=== PATIENT | female | born 1995 | race African-American/Black ===

== ENCOUNTER 2016-05-21 10:34 | Emergency (ER) | payer SELFPAY ==
[~2016-05-21 10:34] MED LIST: PROM12.553 RC
[2016-05-21 10:36] VITALS: BP 126/86
--- NOTE | 2016-05-21 11:07 | PHYS DOC ---
Past History Past Medical History: No Pertinent History Past Surgical History: Other Smoking: Non-smoker Alcohol Use: None Drug Use: None Adult General Chief Complaint Chief Complaint: foot pain HPI HPI 20 years old female patient G1 at 30 weeks of gestation complaining of pain in the medial side of left ankle and she thinks maybe she had injury with a torn to her ankle. Patient denies problem related to her and fever and chills. Review of Systems Review of Systems Constitutional: Denies fever or chills [] Eyes: Denies change in visual acuity, redness, or eye pain [] HENT: Denies nasal congestion or sore throat [] Respiratory: Denies cough or shortness of breath [] Cardiovascular: No additional information not addressed in HPI [] GI: Denies abdominal pain, nausea, vomiting, bloody stools or diarrhea [] : Denies dysuria or hematuria [] Musculoskeletal: Denies back pain or joint pain [] Integument: Denies rash or skin lesions [] Neurologic: Denies headache, focal weakness or sensory changes [] Endocrine: Denies polyuria or polydipsia [] Allergies Allergies Allergies Coded Allergies Type Severity Reaction Last Updated Verified No Known Drug Allergies 09/14/14 No Physical Exam Physical Exam Constitutional: Well developed, well nourished, no acute distress, non-toxic appearance.anxious [] HENT: Normocephalic, atraumatic, bilateral external ears normal, oropharynx moist, no oral exudates, nose normal. [] Eyes: PERRLA, EOMI, conjunctiva normal, no discharge. [] Neck: Normal range of motion, no tenderness, supple, no stridor. [] Cardiovascular:Heart rate regular rhythm, no murmur [] Lungs & Thorax: Bilateral breath sounds clear to auscultation [] Abdomen: Bowel sounds normal, soft, no tenderness, no masses, no pulsatile masses. gravid abdomen[] Skin: Warm, dry, no erythema, no rash. [] Back: No tenderness, no CVA tenderness. [] Extremities: No tenderness, no cyanosis, no clubbing, ROM intact, no edema. left ankle with very small area of erythema[] Neurologic: Alert and oriented X 3, normal motor function, normal sensory function, no focal deficits noted. [] Psychologic: Affect normal, judgement normal, mood normal. [] Current Patient Data Vital Signs Vital Signs Date Time Temp Pulse Resp B/P Pulse Ox O2 Delivery O2 Flow Rate FiO2 05/21/16 10:36 98.5 105 18 97 Room Air EKG EKG [] Radiology/Procedures Radiology/Procedures [] Dragon Disclaimer Dragon Disclaimer This chart was dictated in whole or in part using Voice Recognition software in a busy, high-work load, and often noisy Emergency Department environment. It may contain unintended and wholly unrecognized errors or omissions. Departure Departure: Impression: Primary Impression: Contusion, foot Additional Impression: Currently Disposition: 01 HOME, SELF-CARE (At 1106) Condition: STABLE Referrals: PCP,NO (PCP) Patient Instructions: Contusion Additional Instructions: Apply ice on affected area Take [id number] Tylenol for pain Problem Qualifiers DEANDRA ODEN MD May 21, 2016 11:07
== END 2016-05-21 11:11 | disposition home or self-care (01) ==
LOC: ER 10:34
DX: O9A.213 Injury, poisoning and certain other consequences of external causes complicating pregnancy, third trimester (principal); S90.32XA Contusion of left foot, initial encounter; Z3A.30 30 weeks gestation of pregnancy; X58.XXXA Exposure to other specified factors, initial encounter; Y93.89 Activity, other specified; Y99.8 Other external cause status; Y92.89 Other specified places as the place of occurrence of the external cause
CPT/HCPCS: 99281

== ENCOUNTER 2016-08-05 19:54 | Emergency (ER) | payer OTHER ==
[~2016-08-05] VITALS: Ht 162.6 cm; Wt 62.1 kg
[2016-08-05 20:06] VITALS: BP 120/76
[2016-08-05] MEDS ORDERED: POLY10DR3 RIGHTEYE (20:39)
--- NOTE | 2016-08-05 20:41 | PHYS DOC ---
Past History Past Medical History: Other Past Surgical History: Smoking: Non-smoker Alcohol Use: None Drug Use: None Adult General Chief Complaint Chief Complaint: EYE PROBLEMS HPI HPI Patient is a 21 year old F who presents with right eye pain for the past day. Patient states she woke up this morning with her eye matted and persistent drainage. Patient denies any other symptoms. Pertinent exam findings: Conjunctivae the right eye is erythematous with purulent drainage and matting of the eyelids, pupils reactive to light bilaterally, extraocular ocular muscles were intact bilaterally ED course: Patient was seen and examined emergency room diagnosed with pinkeye and discharged home with eyedrops MDM: After reviewing the chart, CC/HPI/PMH, physical exam, I do not believe the patient has a severe bacterial infection warranting further workup and/or admission at this time. I believe the patient has pinkeye of the right eye and can be discharged home with eyedrops and follow up with PCP in one to 2 days. Patient stable for discharge. Additional verbal discharge instructions were provided to the patient and that if symptoms get worse or any new symptoms arise that are worrisome to the patient she is to return to the emergency room immediately Review of Systems Review of Systems GEN: Denies fevers, chills, sweats HEENT: Right eye pain CV: Denies chest pain RESP: Denies shortness of air, cough GI: Denies n/v/d NEURO: Denies confusion, dizziness MSK: Denies weakness, joint pain/swelling Allergies Allergies Allergies Coded Allergies Type Severity Reaction Last Updated Verified No Known Drug Allergies 09/14/14 No Physical Exam Physical Exam GEN.: No apparent distress. Alert and oriented. HEENT: Head is normocephalic, atraumatic, pupils were equal and reactive bilaterally, extraocular muscles are intact bilaterally, right conjunctiva erythematous with a purulent drainage and matting of the eyelids on the right NECK: Supple. LUNGS: CTAB. HEART: RRR, S1, S2 present. Peripheral pulses intact ABDOMEN: Soft, nontender. Positive bowel sounds. EXTREMITIES: Without any cyanosis. NEUROLOGIC: Normal speech, normal tone PSYCHIATRIC: Normal affect, normal mood. SKIN: No ulcerations Current Patient Data Vital Signs Vital Signs Date Time Temp Pulse Resp B/P (MAP) Pulse Ox O2 Delivery O2 Flow Rate FiO2 08/05/16 20:06 98.1 94 16 98 Room Air EKG EKG [] Radiology/Procedures Radiology/Procedures [] Course & Med Decision Making Course & Med Decision Making Pertinent Labs and Imaging studies reviewed. (See chart for details) [] Dragon Disclaimer Dragon Disclaimer This chart was dictated in whole or in part using Voice Recognition software in a busy, high-work load, and often noisy Emergency Department environment. It may contain unintended and wholly unrecognized errors or omissions. Departure Departure: Impression: Primary Impression: Bacterial conjunctivitis of right eye Disposition: HOME, SELF-CARE Condition: STABLE Referrals: PCP,NO (PCP) Patient Instructions: Bacterial Conjunctivitis, [id number] Additional Instructions: Leads follow-up with her family doctor next one to 2 days Scripts Polymyxin B Sulf/Trimethoprim (POLYMYXIN B-TMP EYE DROPS) 10 Ml Drops 1 DROP BILL MURPHY, #10 ML Prov: CATINA BLEDSOE DO 08/05/16 CATINA BLEDSOE DO Aug 05, 2016 20:41
== END 2016-08-05 20:54 | disposition home or self-care (01) ==
LOC: ER 19:54
DX: H10.89 Other conjunctivitis (principal)
CPT/HCPCS: 99283

== ENCOUNTER 2016-11-05 13:38 | Emergency (ER) | payer OTHER ==
[~2016-11-05] VITALS: Ht 162.6 cm; Wt 59.0 kg
[~2016-11-05 13:38] MED LIST changes: +POLY10DR3 RIGHTEYE
--- NOTE | 2016-11-05 15:08 | PHYS DOC ---
Past History Past Medical History: No Pertinent History Past Surgical History: No Surgical History Smoking: Non-smoker Alcohol Use: Occasionally Drug Use: None Adult General Chief Complaint Chief Complaint: VAGINAL PROBLEM HPI HPI Patient is a 21 year old female who presents with complaint of vaginal pain and discharge. Patient states that she has had worsening symptoms over the past week. Patient states that she has had vaginal discharge which has appeared yellow-green and has been foul-smelling. Patient states that she has had associated pelvic pain with her symptoms. The patient states that she is sexually active with one partner but states she is concerned that she may have contracted a sexually transmitted infection from him as he has multiple partners. Patient denies any associated nausea, vomiting, or fever. Patient also states that she has been noticing small areas of rash showing up on her torso and hip which she attributes to hives. Patient states that these lesions have been itchy. Patient has not taken any medication to help with her symptoms at this time. Review of Systems Review of Systems Constitutional: Denies fever or chills [] Eyes: Denies change in visual acuity, redness, or eye pain [] HENT: Denies nasal congestion or sore throat [] Respiratory: Denies cough or shortness of breath [] Cardiovascular: Denies chest pain or edema[] GI: Denies abdominal pain, nausea, vomiting, bloody stools or diarrhea [] : Green vaginal discharge, pelvic pain, denies dysuria or hematuria[] Musculoskeletal: Denies back pain or joint pain [] Integument: Rash[] Neurologic: Denies headache, focal weakness or sensory changes [] Allergies Allergies Allergies Coded Allergies Type Severity Reaction Last Updated Verified No Known Drug Allergies 09/14/14 No Physical Exam Physical Exam Constitutional: Alert, afebrile, appears in no acute distress. [] HENT: Normocephalic, atraumatic, bilateral external ears normal, oropharynx moist, no oral exudates, nose normal. [] Eyes: PERRLA, EOMI, conjunctiva normal, no discharge. [] Neck: Normal range of motion, no tenderness, supple, no stridor. [] Cardiovascular:Heart rate regular rhythm, no murmur [] Lungs & Thorax: Bilateral breath sounds clear to auscultation [] Abdomen: Bowel sounds normal, soft, no tenderness, no masses, no pulsatile masses. Pelvic: Normal external exam, thick yellow discharge in vaginal canal, no vaginal bleeding, cervical os closed, no cervical motion tenderness, no midline or bilateral adnexal tenderness on bimanual exam[] Skin: Warm, dry, no erythema, no rash. [] Back: No tenderness, no CVA tenderness. [] Extremities: No tenderness, no cyanosis, no clubbing, ROM intact, no edema. [] Neurologic: Alert and oriented X 3, normal motor function, normal sensory function, no focal deficits noted. [] Current Patient Data Vital Signs Vital Signs Date Time Temp Pulse Resp B/P (MAP) Pulse Ox O2 Delivery O2 Flow Rate FiO2 11/05/16 14:43 98.0 90 18 106/72 (83) 98 Room Air Lab Results Laboratory Tests Test 11/05/16 14:08 POC Urine HCG, Qualitative hcg negative (Negative) EKG EKG Not performed[] Radiology/Procedures Radiology/Procedures Not performed[] Course & Med Decision Making Course & Med Decision Making Pertinent Labs and Imaging studies reviewed. (See chart for details) Patient's wet prep was positive for Trichomonas and clue cells. Due to the presence of Trichomonas, patient may have coinfection with gonorrhea and chlamydia at this time. For this reason, the patient was given IM Rocephin, oral azithromycin, and started on oral Flagyl for comprehensive treatment for sexually transmitted infection. The patient will be discharged on oral Flagyl. Advised follow-up in 3-4 days with primary doctor for reevaluation. Advised the patient to inform any sexual partners of the presence of possible infection and need for medical evaluation and treatment. Advised patient to abstain from any sexual intercourse until symptoms have completely resolved and all sexual partners have been treated. Recommended return to emergency department for any worsening symptoms. Patient voiced understanding and in agreement with treatment plan. Dragon Disclaimer Dragon Disclaimer This chart was dictated in whole or in part using Voice Recognition software in a busy, high-work load, and often noisy Emergency Department environment. It may contain unintended and wholly unrecognized errors or omissions. Departure Departure: Impression: Primary Impression: Trichomonas vaginalis infection Additional Impressions: Bacterial vaginosis Sexually transmitted infection Urticaria Disposition: 01 HOME, SELF-CARE Condition: IMPROVED Referrals: PCP,NO (PCP) Patient Instructions: Bacterial Vaginosis, Hives, Sexually Transmitted Disease , Trichomoniasis Additional Instructions: Follow-up in 3-4 days with your primary doctor for reevaluation. Return to the emergency department for any worsening symptoms. Scripts Metronidazole (FLAGYL) 500 Mg Tablet 1 TAB PO BID, #14 TAB Prov: MIGUEL RAWLS MD 11/05/16 Problem Qualifiers MIGUEL RAWLS MD Nov 05, 2016 15:08
[2016-11-05] MEDS ORDERED: metroNIDAZOLE 500 MG TABLET PO ONE (15:45)
[2016-11-05] MEDS ORDERED: cefTRIAXone IM 250 MG VIAL IM ONE (15:45)
[2016-11-05] MEDS ORDERED: AZITHROMYCIN 250 MG TABLET. PO ONE (15:45)
[2016-11-05 16:06] LABS: BACTERIA,URINE FEW /HPF (0-FEW); BILIRUBIN,URINE NEG (NEG); CLARITY,URINE CLOUDY; COLOR,URINE YELLOW; GLUCOSE,URINE NEG (NEG); NITRITE,URINE NEG (NEG); RBC,URINE OCC /HPF (0-2); UROBILINOGEN,URINE 0.2 mg/dL (0.2 mg/dL); WBC,URINE >40 /HPF (0-4)
[2016-11-05 16:07] LABS: SQUAMOUS EPITHELIAL CELL,UR MOD /LPF; TRICHOMONAS,URINE PRESENT
[2016-11-05] MEDS ORDERED: METR500T PO (16:12)
[2016-11-05 16:26] VITALS: BP 112/85
[2016-11-08 14:09] LABS: CHLAMYDIA PROBE Negative (Negative)
== END 2016-11-05 16:27 | disposition home or self-care (01) ==
LOC: ER 13:38
DX: N76.0 Acute vaginitis (principal); A59.01 Trichomonal vulvovaginitis; A64 Unspecified sexually transmitted disease; L50.9 Urticaria, unspecified
CPT/HCPCS: 36415; 81001; 81025; 87086; 87491; 87591; 96372; 99284; J0456; J0696; Q0111

== ENCOUNTER 2017-02-16 20:19 | Emergency (ER) | payer OTHER ==
[~2017-02-16] VITALS: Ht 162.6 cm; Wt 59.0 kg
[~2017-02-16 20:19] MED LIST changes: +METR500T PO
[2017-02-16] MEDS ORDERED: IV NORMAL SALINE 1,000ML 1,000 ML IV SCH (20:44)
[2017-02-16 21:17] LABS: BASO % 1 % (0-3); EOS % 0 % (0-3); HEMATOCRIT 40.3 % (36.0-47.0); LYMPH % 24 % (24-48); MEAN CORPUSCULAR HEMOGLOBIN 31 pg (25-35); MEAN CORPUSCULAR HGB CONC 35 g/dL (31-37); MEAN CORPUSCULAR VOLUME 90 fL (79-100); MONO # 0.4 x10^3/uL (0.0-1.1); MONO % 4 % (0-9); NEUT # 5.9 x10^3uL (1.8-7.7); NEUT % 71 % (31-73); PLATELET COUNT 224 x10^3/uL (140-400); RED BLOOD COUNT 4.49 x10^6/uL (3.50-5.40); RED CELL DISTRIBUTION WIDTH 14.1 % (11.5-14.5); WHITE BLOOD COUNT 8.3 x10^3/uL (4.0-11.0)
[2017-02-16 21:31] LABS: ALBUMIN 4.3 g/dL (3.4-5.0); ALBUMIN/GLOBULIN RATIO 1.3 (1.0-1.7); CALCIUM 9.4 mg/dL (8.5-10.1); CREATININE 0.8 mg/dL (0.6-1.0); GFR 110.7; POTASSIUM 3.7 mmol/L (3.5-5.1); TOTAL BILIRUBIN 0.4 mg/dL (0.2-1.0); TOTAL PROTEIN 7.6 g/dL (6.4-8.2)
[2017-02-16 21:40] LABS: BARBITURATES NEG (NEG); BENZODIAZEPINES NEG (NEG); CANNABINOIDS POS (NEG); COCAINE POS (NEG); METHADONE NEG (NEG); OPIATES NEG (NEG); PHENCYCLIDINE NEG (NEG)
[2017-02-16 21:41] LABS: AMPHETAMINE/METHAMPHETAMINE NEG (NEG)
[2017-02-16 21:47] VITALS: BP 140/89
[2017-02-16] MEDS ORDERED: SULF1TAB24 PO (21:55)
--- NOTE | 2017-02-16 21:57 | PHYS DOC ---
General Chief Complaint: SUBSTANCE ABUSE Stated Complaint: SOA,FEET NUMB,SHAKING Time Seen by MD: 20:38 Source: patient Exam Limitations: no limitations Problems: History of Present Illness Initial Comments Patient is a 21-year-old female who comes to the ED complaining of symptoms related to cocaine abuse. Patient states that she has been using cocaine semi-regularly for the past few weeks. She says that she works a lot and needs it to stay awake. Her last use was reportedly some time yesterday evening, she says she has been awake since that time. She's complaining of a feeling of shortness of air, tremors, finger and toe tingling. Denies any trauma no chest pain, no headache or focal weakness. No pre-arrival treatment, heart rate 106 bpm otherwise her vital signs are stable. On my evaluation she is not in any distress and no tremors or observed. She denies suicidal or homicidal ideation. Patient also says she thinks she has a UTI as she's had some frequency hesitancy and that time and odor with urination. She's been taking Azo over-the- counter and her urine is discolored orange. No nausea vomiting or abdominal pain. No flank pain. Timing/Duration: 24 hours Severity: moderate Modifying Factors: improves with other Associated Symptoms: shortness of breath, other Allergies: Coded Allergies: No Known Drug Allergies (Unverified , 09/14/14) Past Medical History Medical History: no pertinent history Surgical History: no surgical history Social History Smoker: cigarettes Alcohol: occasionally Drugs: cocaine, marijuana Review of Systems Constitutional: denies chills, denies diaphoresis, denies fever, denies malaise Respiratory: denies cough, shortness of breath, denies wheezing Cardiovascular: denies chest pain, denies palpitations, denies syncope Gastrointestinal: denies abdominal pain, denies diarrhea, denies nausea, denies vomiting Musculoskeletal: see HPI, denies back pain, denies joint swelling, denies muscle pain, denies neck pain Psychiatric/Neurological: see HPI, denies weakness Hematologic/Lymphatic: denies blood clots, denies easy bleeding, denies easy bruising Physical Exam General Appearance: WD/WN, no apparent distress Eyes: bilateral eye normal inspection, bilateral eye PERRL, bilateral eye EOMI Ear, Nose, Throat: hearing grossly normal, normal ENT inspection, normal pharynx Neck: non-tender, supple Respiratory: normal breath sounds, no respiratory distress Cardiovascular: normal peripheral pulses, regular rate, rhythm Gastrointestinal: non tender, soft Back: no CVA tenderness, no vertebral tenderness Extremities: non-tender, normal inspection 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 CBC, chemistry, CK, troponin all normal/unremarkable. Urine drug screen positive for cocaine and cannabinoids. No apparent emergent condition, I discussed substance abuse and cocaine addiction and the need for her to seek help. I discussed the potential for heart damage and stroke as well as propensity for rhabdomyolysis with cocaine abuse. The patient denies prior withdrawal symptoms. I recommended cessation of all substance abuse and increase fluid intake. Due to the reported history of urinary symptoms we will treat with Bactrim DS by history. The patient was advised to follow-up with her doctor in 1-2 days for recheck. Through the ED course while waiting for results the patient's symptoms did improve significantly. I agreed to give her 1 mg of Ativan by mouth the patient has a ride home. Signs and symptoms to monitor as well as indications for urgent return to the department were discussed and the patient's questions were answered to her satisfaction. She expressed agreement and understanding with the treatment plan. Departure Time of Disposition: 21:56 Disposition: 01 HOME, SELF-CARE Diagnosis: polysubstance abuse, urinary tract symptoms Condition: STABLE Patient Instructions: Cocaine Abuse and Chemical Dependency Additional Instructions: Please review the patient education materials given by ED staff. No driving or operating machinery while sedated with medications. Discontinue substance abuse, seek medical assistance or inpatient rehabilitation if necessary. Prescription: Bactrim DS Aggressive hydration with Gatorade or water. Follow-up with a doctor in 2 days for recheck. Return to ED with new or changing symptoms. ROBBY VARMA DO Feb 16, 2017 21:57
[2017-02-16] MEDS ORDERED: LORazepam 1 MG TABLET PO ONE (22:30)
--- NOTE | 2017-02-17 02:30 | EKG ---
[address] [address] Test Date: 2017-02-16 Test Time: 21:44:50 Pat Name: MONICA CABALLERO Department: Room: Gender: F [employer] Cleaning Machine Operator: GAL : 1995 Requested By: ROBBY VARMA Order Number: [id number] Reading MD: Measurements Intervals [place] Rate: 73 P: 73 KS: 192 QRS: 63 QRSD: 92 T: 43 QT: 376 QTc: 418 Interpretive Statements SINUS RHYTHM QRS(T) CONTOUR ABNORMALITY CONSIDER INFERIOR MYOCARDIAL DAMAGE POSSIBLY ABNORMAL ECG RI6.01 Unconfirmed report No previous ECG available for comparison
== END 2017-02-16 22:10 | disposition home or self-care (01) ==
LOC: ER 20:19
DX: F19.10 Other psychoactive substance abuse, uncomplicated (principal); F14.10 Cocaine abuse, uncomplicated; F12.10 Cannabis abuse, uncomplicated; F17.210 Nicotine dependence, cigarettes, uncomplicated; R35.0 Frequency of micturition; R39.11 Hesitancy of micturition
CPT/HCPCS: 36415; 80053; 80307; 82550; 84484; 85025; 93005; 99285-25; G0479